=== PATIENT | male | born 1990 | race African-American/Black ===

== ENCOUNTER → 2018-10-09 | Outpatient (CLI) | payer OTHER ==
--- NOTE | 2018-10-09 17:06 | CONS ---
Assessment/Plan Assessment/Plan Hospital Course (Demo Recall) This is a 28-year-old male with multi-ligamentous injury including complete ACL tear, grade 2 PCL strain, large lateral meniscus tear, grade 2 MCL and LCL strain. He also has a significant osteochondral defect. Secondary to this being a multi-ligamentous injury of believe he would be best treated by an orthopedic sports surgeon as he potentially may benefit from a lateral meniscus repair versus a debridement at the time of his ACL reconstruction. In the meantime I would like him to limit his weightbearing secondary to the large osteochondral defect. I like him to wait another week until he begins placing 50% weightbearing followed by weightbearing as tolerated. Plan: Urgent referral to orthopedic sports Temporary handicap placard Consultation Date/Type/Reason Admit Date/Time Date of Consultation: Oct 09, 2018 Reason for Consultation Left knee injury Date/Time of Note DATE: 10/09/18 TIME: 16:58 Hx of Present Illness 28-year-old male was playing soccer on 09/17/2018 when he was trying to catch himself from falling when colliding with another player and felt a grinding and pop in his left knee. He had immediate swelling. He had difficulty bearing weight. He had severe 10/10 pain. He has been using crutches since the injury. His pain is now 6/10. His swelling has gone down significantly. Pain is described as dull and throbbing. The pain is inside his knee. Feels that he does have instability. He has been taking ibuprofen and cyclobenzaprine for pain and muscle spasms. Elevating and ice also help. Denies numbness and tin gling. Denies previous injury to this knee. Patient denies fever, chills, shortness of breath, chest pain, nausea/vomiting, constipation, diarrhea, numbness, and tingling. Past Medical History Denies past medical history Past Surgical History Past Surgical Hx: no surgical history Family History Significant Family History: no pertinent family hx Social History Alcohol Use: occasionally Smoking Status: Never smoker Drug Use: none Exam/Review of Systems Exam Vitals Weight: 1 7 5 pounds Height: 6 feet 3 inches Temperature: 97.9 Heart Rate: 99 Blood Pressure: 115/72 Respiratory Rate: 14 Exam General: Alert, oriented x3. No Acute Distress. Heart: Regular rate and rhythm. Lungs: No respiratory distress. No accessory muscle use. Musculoskeletal: Left Knee This is a well developed male who is alert, oriented times three and in no apparent distress. Skin is intact over the left knee as well as the lower extremity with no abrasions, lacerations, or ulcerations. Observation of the patient's gait reveals an antalgic gait using crutches. There is pain on palpation of medial joint line. The patient demonstrates grinding anteriorly with ROM. Range of motion: 30 extension to approximately 100 degrees of flexion. Collateral ligament testing difficult to test and stability secondary to pain.. Equivocal Jim's and negative posterior drawer. Neurovascularly intact with 5/5 EHL/tibialis anterior/gastroc. Sensation intact to light touch in a sural, saphenous, deep peroneal, superficial peroneal, medial and lateral plantar nerve distribution. Palpable, symmetric dorsalis pedis and posterior tibial pulses in both lower extremities. Hip examination normal. Imaging Imaging MRI of the left knee dated 09/21/2018 was personally reviewed. Demonstrates a left knee ACL tear with a grade 2 PCL strain. There is a grade 2 strain to the MCL. There is a grade 2 strain to the LCL. There is a complex flap tear of the inner third and body of the lateral meniscus. There is edema and possibly a small tear in the medial meniscus. There is significant marrow edema in the lateral femoral condyle with osteochondral injury of the weightbearing surface. Large joint effusion. RM SOUZA MD Oct 09, 2018 17:06
== END | disposition home or self-care (01) ==
LOC: HKI 14:56
PROVIDERS: ATTEND Orthopaedic Surgery Adult Reconstructive Orthopaedic Surgery
DX: S83.207D Unspecified tear of unspecified meniscus, current injury, left knee, subsequent encounter (principal); X58.XXXD Exposure to other specified factors, subsequent encounter; M95.8 Other specified acquired deformities of musculoskeletal system
CPT/HCPCS: G0463